=== PATIENT | born 1955 | race Caucasian/White ===

== ENCOUNTER → 2025-06-25 10:01 | Outpatient (BNVA) | payer MEDICARE, OTHER, SELFPAY | PROVIDERS: Referring Provider Nurse Practitioner Family; Visit Provider Internal Medicine Rheumatology | DX: M81.0 Age-related osteoporosis without current pathological fracture (principal); M25.50 Pain in unspecified joint; M34.9 Systemic sclerosis, unspecified | CPT/HCPCS: 36415; 71046; 80076; 82306; 82565; 85025; 85651; 86140; 86480; 86704; 86803; 87340; 99204 ==

== ENCOUNTER 2025-06-26 13:02 | Outpatient (CLI) | payer MEDICARE, OTHER, SELFPAY ==
--- NOTE | 2025-06-26 13:06 | XR_ITS ---
WS: [email or web address] Exam: XR thoracic spine 3V* [id number] Date/Time of Exam: 06/26/2025 1:25 PM Reason For Exam: M48.10 - Ankylosing hyperostosis [[place]], site unspec... No acute fracture. Marked spondylosis. Mild upper thoracic dextroscoliosis. Exaggerated thoracic kyphosis. Normal paraspinal soft tissues. XR/XR thoracic spine 3V* [id number] IMPRESSION: 1. Marked spondylosis and degenerative disc changes. Dextroscoliosis and increa sed kyphosis.
--- NOTE | 2025-06-26 13:06 | XR_ITS ---
WS: [email or web address] Exam: XR lumbar spine 2-3V* [id number] Date/Time of Exam: 06/26/2025 1:25 PM Reason For Exam: M48.10 - Ankylosing hyperostosis [[place]], site unspec... DLP: No fracture. Degenerative narrowing of the L5-S1 disc. Probable sacralization of L5. Slight levoscoliosis. Mild spondylosis. Moderate DJD of the SI joints. Numerous large laminated calcified gallstones noted. XR/XR lumbar spine 2-3V* [id number] IMPRESSION: 1. Degenerative changes and mild spondylosis. No fracture or malalignment. 2. Cholelithiasis.
--- NOTE | 2025-06-26 13:06 | XR_ITS ---
WS: [email or web address] Exam: XR cervical spine fl/ex [id number] Date/Time of Exam: 06/26/2025 1:25 PM Reason For Exam: M48.10 - Ankylosing hyperostosis [[place]], site unspec... No fracture or malalignment. No flexion or extension instability identified. Mild to moderate facet DJD. Disc spaces are preserved. Mild spondylosis from C5- C7. Normal paraspinal soft tissues. IMPRESSION1. No instability or malalignment. 2. Mild to moderate facet degenerative change.
== END 2025-06-26 13:03 | disposition home or self-care (01) ==
LOC: RAD 13:03
PROVIDERS: Visit Provider Internal Medicine Rheumatology
DX: M48.10 Ankylosing hyperostosis [Forestier], site unspecified (principal); M47.894 Other spondylosis, thoracic region; M40.294 Other kyphosis, thoracic region; M47.896 Other spondylosis, lumbar region; M47.892 Other spondylosis, cervical region
CPT/HCPCS: 72040; 72072; 72100